=== PATIENT | female | born 1965 | race American Indian/Alaskan Native ===

== ENCOUNTER 2017-07-22 13:04 | Emergency (ER) | payer OTHER ==
[2017-07-22] MEDS ORDERED: MOTRIN ONE (16:48)
[2017-07-22] MEDS ORDERED: MOTRIN PO ONE (16:48)
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
[2017-07-22] MEDS ORDERED: NORCO 5/325 PO ONE (18:40)
[2017-07-22] MEDS ORDERED: FLEXERIL PO ONE (18:40)
[2017-07-22 18:45] VITALS: BP 140/72
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
== END 2017-07-22 19:15 | disposition home or self-care (01) ==
LOC: ED 13:04
DX: S16.1XXA Strain of muscle, fascia and tendon at neck level, initial encounter (principal); V89.2XXA Person injured in unspecified motor-vehicle accident, traffic, initial encounter; Y93.89 Activity, other specified; Y92.89 Other specified places as the place of occurrence of the external cause; Y99.8 Other external cause status
CPT/HCPCS: 72040; 99283